=== PATIENT | female | born 1980 | race Caucasian/White ===

== ENCOUNTER → 2019-03-30 | Outpatient (CLI) | payer BC ==
[2019-03-30 12:50] LABS: Glucose 3 Hour, Gest 77 mg/dL
== END | disposition home or self-care (01) ==
LOC: LABWHC1 08:38
PROVIDERS: ATTEND Obstetrics & Gynecology
DX: O99.810 Abnormal glucose complicating pregnancy (principal); Z3A.00 Weeks of gestation of pregnancy not specified
CPT/HCPCS: 36415; 82951; 82952

== ENCOUNTER 2019-06-19 11:01 | Inpatient (IN) | payer BC ==
--- NOTE | 2019-06-28 05:52 | P.HPOB ---
History of Present Illness H&P Date: 06/28/19 Chief Complaint: Requesting induction of labor. This patient is a pleasant 38-year-old 7 para 4 female estimated date of confinement 06/28/2019 estimated gestational age 40-0/7 weeks who presents to labor and delivery requesting induction of labor. Patient's care is complicated by advanced maternal age. Patient has declined referral to maternal- medicine or any genetic testing. She has been watched with growth ultrasounds and nonstress testing. Patient had a previous section as her first followed by 3 successful VBACs wishes to again. has otherwise been uncomplicated. Review of Systems Genitourinary: Reports Menstruation: Reports amenorrhea Past Medical History Past Medical History: No Reported History Additional Past Medical History / Comment(s): Past obstetrical history shows a C/S with her first baby, followed by 3 successful VBACs. Pt also had a 14 wks demise. History of Any Multi-Drug Resistant Organisms: None Reported Past Surgical History: Section, Orthopedic Surgery Additional Past Surgical History / Comment(s): Left ACL repair. D&C for retained placenta Past Anesthesia/Blood Transfusion Reactions: No Reported Reaction Past Psychological History: No Psychological Hx Reported Smoking Status: Never smoker Past Alcohol Use History: None Reported Past Drug Use History: None Reported - Past Family History Father Family Medical History: No Reported History Mother Family Medical History: No Reported History Medications and Allergies Home Medications Medication Instructions Recorded Confirmed Type Vit No.124/Iron/Folic 1 tab PO DAILY 03/28/15 06/07/16 History [ Vitamin Tablet] Acetaminophen-Codeine 300-30mg 1 - 2 each PO Q4HR PRN #40 tab 06/08/16 Rx [Tylenol w/codeine #3] Ibuprofen [Motrin] 600 mg PO Q6HR PRN #40 tab 06/08/16 Rx Amoxicillin/Potassium Clav 1 each PO Q12HR #20 tab 07/03/16 Rx [Augmentin 875-125 Tablet] Allergies Allergy/AdvReac Type Severity Reaction Status Date / Time No Known Allergies Allergy Verified 08/02/15 12:31 Exam - OBG Physical Exam Abdomen: bowel sounds normal, no diffuse tenderness, no bruit present, no guarding noted, no hepatomegaly, no splenomegaly, no mass Vulva: both: normal Vagina: normal moisture, no discharge Cervix: no lesion (Cervix the office was 3 cm dilated 50% effaced.), no discharge Uterus: enlarged (Fundal height 38 cm) Results blood work shows she is O positive, rubella immune, RPR nonreactive, hepatitis B negative, Glucola was abnormal with a normal three-hour gtt., group B strep was negative, growth ultrasounds were normal. Assessment and Plan (1) 40 weeks gestation of Status: Acute Code(s): Z3A.40 - 40 WEEKS GESTATION OF SNOMED Code(s): 55827730 (2) Elderly multigravida Status: Acute Code(s): O09.529 - SUPERVISION OF ELDERLY MULTIGRAVIDA, UNSPECIFIED TRIMESTER SNOMED Code(s): 962092885 (3) Desires (vaginal after ) trial Status: Acute Code(s): O34.21 - MATERNAL CARE FOR SCAR FROM PREVIOUS * DO NOT USE * SNOMED Code(s): 796980130
[2019-06-28] MEDS ORDERED: OXYTOCIN 10 UNIT/ML 1 ML VIAL IM PRN (06:12)
[2019-06-28] MEDS ORDERED: LIDOCAINE 0.5% (PF) 5 MG/ML (50 ML SDV) SQ PRN (06:12)
[2019-06-28] MEDS ORDERED: CARBOPROST TROMETHAMINE 250 MCG/ML 1 ML AMP IM PRN (06:12)
[2019-06-28] MEDS ORDERED: METHYLERGONOVINE 0.2 MG/ML 1 ML AMP IM PRN (06:12)
[2019-06-28] MEDS ORDERED: TERBUTALINE 1 MG/ML VIAL SQ PRN (06:12)
[2019-06-28] MEDS ORDERED: OXYTOCIN 30 UNITS/500 ML NS 30 UNIT in SALINE 1 500ML.BAG IV SCH (06:12)
[2019-06-28] MEDS ORDERED: LACTATED RINGERS 1,000 ML IV SCH (06:12)
[2019-06-28 06:37] LABS: Basophils % (A) 0 %; Eosinophils # (A) 0.1 k/uL (0-0.7); Eosinophils % (A) 1 %; HCT 40.5 % (34.0-46.0); HGB 13.4 gm/dL (11.4-16.0); Lymphocytes # (A) 2.1 k/uL (1.0-4.8); Lymphocytes % (A) 17 %; MCHC 33.1 g/dL (31.0-37.0); MCV 90.7 fL (80.0-100.0); Mean Platelet Volume 7.9; Monocytes # (A) 0.5 k/uL (0-1.0); Monocytes % (A) 4 %; Neutrophils # (A) 9.1 k/uL (1.3-7.7); Neutrophils % (A) 76 %; Platelet Count 176 k/uL (150-450); RBC 4.47 m/uL (3.80-5.40); RDW 13.9 % (11.5-15.5); WBC 11.9 k/uL (3.8-10.6)
[2019-06-28 06:56] VITALS: BMI 41.1
[2019-06-28] MEDS ORDERED: PRENATAL VIT-IRON-FOLIC ACID 1 EACH CAP PO SCH (09:00)
[2019-06-28] MEDS ORDERED: WITCH HAZEL 1 EACH MED..PAD TOPICAL PRN (10:59)
[2019-06-28] MEDS ORDERED: OXYTOCIN 20 UNITS/1000 ML NS 1,000 ML IV SCH (10:59)
[2019-06-28] MEDS ORDERED: SIMETHICONE 80 MG CHEWABLE PO PRN (10:59)
[2019-06-28] MEDS ORDERED: ZOLPIDEM 5 MG TAB PO PRN (10:59)
[2019-06-28] MEDS ORDERED: BISACODYL 10 MG SUPP RECTAL PRN (10:59)
[2019-06-28] MEDS ORDERED: BENZOCAINE/MENTHOL SPRAY 1 GM/SPRAY AEROSOL TOPICAL PRN (10:59)
[2019-06-28] MEDS ORDERED: LANOLIN CREAM 5 GM TUBE TOPICAL PRN (10:59)
[2019-06-28] MEDS ORDERED: HYDROCORTISONE 2.5% RECTAL CREAM 30 GM TUBE RECTAL PRN (10:59)
[2019-06-28] MEDS ORDERED: diphenhydrAMINE 25 MG CAP PO PRN (10:59)
[2019-06-28] MEDS ORDERED: ACETAMINOPHEN TAB 325 MG TAB PO PRN (10:59)
[2019-06-28] MEDS ORDERED: diphenhydrAMINE 50 MG/ML 1 ML VIAL IVP PRN (10:59)
[2019-06-28] MEDS: IBUPROFEN 600 MG TAB PO PRN ×2 (11:31→22:15)
[2019-06-28] MEDS: SENNOSIDES-DOCUSATE SODIUM 1 EACH TAB PO SCH ×2 (11:36→21:01)
--- NOTE | 2019-06-28 12:35 | P.PROBDLV ---
Vaginal Delivery Note - . Vaginal Delivery Note: Normal vaginal delivery () viable female infant Apgars 9 and 9 delivery time is 1035 hrs. Please see dictated H&P for intimate details of this patient's admission and brief summary this is a pleasant 38-year-old 7 para 4 female 40-0/7 weeks gestation who is admitted to labor and delivery for requested induction of labor. Patient is 3-4 cm dilated has artificial rupture membranes for clear fluid. Patient labor is induced with Pitocin per protocol. Patient does not request anything for pain control. She quickly progresses and gets to complete. Patient pushes the head to the perineum. Posterior perineum was supported we have controlled delivery of 's head over the intact perineum. Mouth and nares are bulb suctioned. There is a nuchal cord 1 which is reduced. With gentle downward traction we then have delivery anterior posterior shoulder and rest this 's body. This is a vigorous viable female infant Apgars are 9 and 9 delivery time is 1035 hrs. After delivery of the the infant is late on the mother's abdomen the cord was allowed to stop pulsating. Cord is then doubly clamped and cut. The placenta spontaneously delivered intact. Inspection of perineum shows a first-degree laceration was repaired with 3-0 Vicryl usual fashion. Excellent reapproximation is noted. All counts are correct 3. There are no complications. Infant and mother stable in delivery room.
--- NOTE | 2019-06-29 06:13 | P.PNOBGVD ---
Subjective - Subjective Patient reports: Reports appetite normal, Reports voiding normally, Reports pain well controlled, Reports ambulating normally : doing well Objective - Latest Vital Signs Latest vital signs: Vital Signs Temp Pulse Pulse Resp BP Pulse Ox 06/29/19 00:00 98 F 79 15 121/74 06/28/19 20:00 98 F 70 15 110/65 06/28/19 16:15 97.5 F L 68 17 111/66 06/28/19 12:46 98.3 F 79 16 116/64 06/28/19 12:17 73 17 108/76 06/28/19 11:46 98.3 F 76 17 115/56 06/28/19 11:31 70 16 114/60 06/28/19 11:16 73 17 118/61 06/28/19 11:04 81 16 118/57 06/28/19 10:46 77 17 121/59 06/28/19 06:47 96.6 F L 95 18 125/71 96 Intake and Output 06/28/19 06/28/19 06/29/19 14:59 22:59 06:59 Other: # Voids 1 - Exam Lungs: bilateral: normal Chest: Normal S1, Normal S2 Extremities: Present: normal Abdomen: Present: normal appearance, soft Uterus: Present: normal, firm - Labs Labs: Abnormal Lab Results - Last 24 Hours (Table) 06/28/19 Range/Units 06:24 WBC 11.9 H (3.8-10.6) k/uL Neutrophils # 9.1 H (1.3-7.7) k/uL Assessment and Plan Assessment: day #1. Patient is resting without complaints and wishes to go home. Vital signs are stable and she is afebrile. Uterus is firm nontender and she is having normal lochia. My impression is a normal course. Plan is to continue routine care and discharge home later today. (1) 40 weeks gestation of Current Visit: No Status: Acute Code(s): Z3A.40 - 40 WEEKS GESTATION OF SNOMED Code(s): 64039236 (2) Elderly multigravida Current Visit: No Status: Acute Code(s): O09.529 - SUPERVISION OF ELDERLY MULTIGRAVIDA, UNSPECIFIED TRIMESTER SNOMED Code(s): 394903737 (3) Desires (vaginal after ) trial Current Visit: No Status: Acute Code(s): O34.21 - MATERNAL CARE FOR SCAR FROM PREVIOUS * DO NOT USE * SNOMED Code(s): 844343920
--- NOTE | 2019-06-29 06:16 | P.DS ---
Providers Date of admission: 06/28/19 05:55 Expected date of discharge: 06/29/19 Attending physician: Reuben Knight Primary care physician: Stated None - Discharge Diagnosis(es) (1) 40 weeks gestation of Current Visit: No Status: Acute (2) Elderly multigravida Current Visit: No Status: Acute (3) Desires (vaginal after ) trial Current Visit: No Status: Acute Hospital Course: Please see dictated H&P for intimate details of this patient's admission. Brief summary this is a pleasant 38-year-old 7 para 4 female 40-0/7 weeks gestation who is admitted to labor and delivery for requested induction of labor. Patient quickly goes on to have a vaginal delivery () of a viable female infant. Please see dictated delivery note. day #1 patient without complaints wishes to go home. Procedures: Induction of labor and normal vaginal delivery Patient Condition at Discharge: Good Plan - Discharge Summary New Discharge Prescriptions: New Ibuprofen [Motrin] 600 mg PO Q6HR PRN #40 tab PRN Reason: Mild Pain Or Fever >= 100.5 No Action Vit No.124/Iron/Folic [ Vitamin Tablet] 1 tab PO DAILY Discharge Medication List Vit No.124/Iron/Folic [ Vitamin Tablet] 1 tab PO DAILY 03/28/15 [History] Ibuprofen [Motrin] 600 mg PO Q6HR PRN #40 tab 06/29/19 [Rx] Follow up Appointment(s)/Referral(s): Reuben Knight MD [STAFF PHYSICIAN] - 08/10/19 9:45 am Patient Instructions/Handouts: Vaginal Delivery (DC) Activity/Diet/Wound Care/Special Instructions: No intercourse or anything per vagina for 6 weeks. Please call if any fever, chills, excessive vaginal bleeding, and/or abdominal pain. Discharge Disposition: HOME SELF-CARE
[2019-06-29] MEDS: IBUPROFEN 600 MG TAB PO PRN (08:14)
[2019-06-29] MEDS: SENNOSIDES-DOCUSATE SODIUM 1 EACH TAB PO SCH (08:15)
[2019-06-29 09:48] VITALS: BP 90/47; PULSE 73; RESP 16; TEMP 97.9
== END 2019-06-29 11:05 | disposition home or self-care (01) | DRG 807 ==
LOC: 4FBP 06-28 05:55
PROVIDERS: ADMIT Obstetrics & Gynecology; ATTEND Obstetrics & Gynecology
PROC: 10E0XZZ Delivery of Products of Conception, External Approach (ICD-10-PCS; principal; 2019-06-28)
PROC: 0HQ9XZZ Repair Perineum Skin, External Approach (ICD-10-PCS; 2019-06-28)
PROC: 10907ZC Drainage of Amniotic Fluid, Therapeutic from Products of Conception, Via Natural or Artificial Opening (ICD-10-PCS; 2019-06-28)
PROC: 3E033VJ Introduction of Other Hormone into Peripheral Vein, Percutaneous Approach (ICD-10-PCS; 2019-06-28)
DX: O34.219 Maternal care for unspecified type scar from previous cesarean delivery (principal); Z37.0 Single live birth; O69.81X0 Labor and delivery complicated by cord around neck, without compression, not applicable or unspecified; O70.0 First degree perineal laceration during delivery; Z3A.40 40 weeks gestation of pregnancy
CPT/HCPCS: 85025; 86850; 86900; 86901

== ENCOUNTER 2019-08-23 06:41 | Day surgery (SDC) | payer BC ==
[2019-08-18 14:26] VITALS: BMI 36.8
--- NOTE | 2019-08-20 07:32 | P.HPOB ---
History of Present Illness H&P Date: 08/20/19 Chief Complaint: Family planning. This patient is a pleasant 38-year-old multigravida patient status post vaginal delivery of her fifth viable infant who presents for laparoscopic fallopian tube cauterization for permanent sterilization. Padmini and I've discussed methods for control including hormonal methods, male sterilization, IUD in this is the method she has chosen. Patient's has declined getting a vasectomy. Past Medical History Past Medical History: No Reported History Additional Past Medical History / Comment(s): sports induced asthma in high school History of Any Multi-Drug Resistant Organisms: None Reported Past Surgical History: Section, Orthopedic Surgery Additional Past Surgical History / Comment(s): Left ACL repair. D&C for retained placenta Past Anesthesia/Blood Transfusion Reactions: No Reported Reaction Past Psychological History: No Psychological Hx Reported Smoking Status: Never smoker Past Alcohol Use History: None Reported Past Drug Use History: None Reported - Past Family History Father Family Medical History: No Reported History Mother Family Medical History: No Reported History Medications and Allergies Home Medications Medication Instructions Recorded Confirmed Type Vit No.124/Iron/Folic 1 tab PO DAILY 03/28/15 08/18/19 History [ Vitamin Tablet] Allergies Allergy/AdvReac Type Severity Reaction Status Date / Time No Known Allergies Allergy Verified 08/18/19 14:18 Exam - OBG Physical Exam Abdomen: bowel sounds normal, no diffuse tenderness, no bruit present, no guarding noted, no hepatomegaly, no splenomegaly, no mass Vulva: both: normal Vagina: normal moisture, no discharge Cervix: no lesion, no discharge Uterus: normal size, normal contour Assessment and Plan Assessment: This patient is a pleasant 38-year-old multiparous patient status post vaginal delivery or fifth viable infant who is now requesting permanent sterilization by laparoscopic tubal cauterization. Plan is laparoscopy with bilateral fallopian tube cauterization. Patient I discussed in detail the risks of the surgery including risks of infection, bleeding, possible injury bowel, bladder, vessels, and/or other organs. She understands that this is considered permanent although there is a failure rate of approximately 5 or less per thousand procedures done. She also understands if she does become she is a 50% chance of a tubal or an ectopic . Patient and I have discussed the fact that this is an elective procedure and alternatives exist. All the patient's questions are answered and a written consent is obtained. (1) Family planning Status: Acute Code(s): Z30.09 - ENCOUNTER FOR OTH GENERAL CNSL AND ADVICE ON CONTRACEPTION SNOMED Code(s): 416902512
[~2019-08-23 06:41] MED LIST: DEXAMETHASONE SOD PHOSPHATE 10 MG/ML 1 ML VIAL IV ONE; LACTATED RINGERS 1,000 ML IV SCH; LIDOCAINE 1% 20 ML VIAL (10MG/ML) FOR IV START INTRADERMA PRN; MIDAZOLAM 2 MG/2 ML VIAL IV PRN; Pre Op ABX Message 1 EACH MISC MISCELLANE ONE; fentaNYL (PF) 50 MCG/ML 2 ML AMP IV PRN
[2019-08-23] MEDS ORDERED: ONDANSETRON 4 MG/2 ML VIAL IVP ONE (07:10)
[2019-08-23] MEDS ORDERED: ROCURONIUM BROMIDE 10 MG/ML 10 ML VIAL IV ONE (07:20)
[2019-08-23] MEDS ORDERED: GLYCOPYRROLATE 0.2 MG/ML 2 ML VIAL ONE (07:20)
[2019-08-23] MEDS ORDERED: SUCCINYLCHOLINE CHLORIDE 100 MG/5 ML SYR IV ONE (07:20)
[2019-08-23] MEDS ORDERED: NEOSTIGMINE 1 MG/ML 10 ML VIAL ONE (07:20)
[2019-08-23] MEDS ORDERED: fentaNYL (PF) 50 MCG/ML 2 ML AMP ONE (07:20)
[2019-08-23] MEDS ORDERED: HYDROmorphone (PF) 1 MG/ML ONE (07:20)
[2019-08-23] MEDS ORDERED: LIDOCAINE 1% INJ 10MG/ML (20 ML MDV) ONE (07:20)
[2019-08-23] MEDS ORDERED: MIDAZOLAM 2 MG/2 ML VIAL ONE (07:20)
[2019-08-23] MEDS ORDERED: PROPOFOL 10 MG/ML 20 ML VIAL IV ONE (07:20)
[2019-08-23] MEDS ORDERED: KETOROLAC 30 MG/ML 1 ML VIAL ONE (07:20)
[2019-08-23] MEDS ORDERED: BUPIVACAINE (PF) 0.5% 30 ML VIAL SQ ONE ×2 (07:38)
[2019-08-23 08:17] VITALS: TEMP 97
--- NOTE | 2019-08-23 08:21 | P.OP ---
Date of Procedure: 08/23/19 Preoperative Diagnosis: Multi parity desires permanent sterilization Postoperative Diagnosis: Same, pelvic adhesions Procedure(s) Performed: Laparoscopy with bilateral fallopian tube cauterization Anesthesia: SANDRINE Surgeon: Reuben Knight Estimated Blood Loss (ml): 5 Pathology: none sent Condition: stable Disposition: PACU Indications for Procedure: Please see dictated H&P for intimate details of this patient's admission. Brief summary this pleasant 38-year-old multiparous patient who is requesting permanent sterilization for family planning/ control. Patient I have discussed various methods of control and this is the method she has chosen. Patient understands this surgery is considered permanent however there is a failure rate of approximately 5 or less per thousand procedures done. Understands if she does become she is 50% chance of a tubal or an ectopic . Patient understands this surgery itself and apparently has risks including risks of infection, bleeding, possible injury bowel, bladder, vessels, and/or other organs. She understands alternatives to the surgery exist. All the patient's questions have been answered and a written consent is obtained. Operative Findings: This patient had normal-appearing tubes and ovaries. She had multiple omental adhesions to the lower incision Description of Procedure: This patient is taken to the operating room where she is laid in the supine position. She subsequently undergoes general endotracheal anesthesia without incident. With an adequate level of anesthesia she's placed in dorsal lithotomy position. Patient is a vaginal perineal abdominal prep and drape. First good on below placed a speculum in the vagina and visualize the cervix. The anterior lip of the cervix was grabbed with an Allis clamp. A acorn cannula is then gently placed into the endocervical canal and attached to the Allis clamp. Speculum was then removed. A red Hanson catheter is then placed in the bladder and 20 mL of urine is changed drained and left in place. With this done we changed gloves and go up above. A 1 cm infraumbilical incision is then made. Through this a 10 mm bladed lists optical trochars placed. Peritoneal placement is confirmed and pneumoperitoneum was created to 12 mm of carbon dioxide gas. With this done is obvious there is multiple omental adhesions to the previous incision. I make a 5 mm incision in the previous Pfannenstiel incision in an area that is clear of the omental adhesions. Through this a 5 mm trochars placed. This is an atraumatic blunt trocar. This done using a blunt probe I am able to move the omental adhesions aside unable to see the uterus and bilateral fallopian tubes and ovaries. They appear normal without evidence of adhesions. Using bipolar cautery I then gently pushed the omental adhesions aside then grasped the right fallopian tube approximately 3 cm from the cornual insertion. A 2-3 cm segment of tube was completely cauterized as demarcated on the volt meter. Complete cauterization is done in multiple portions and the segment. This done I turned my attention to the left fallopian tube and using a similar technique a 2-3 cm segment of tube was completely cauterized. Final inspection is done there is no evidence of any bleeding appears to be hemostatic. I did look at the upper abdomen and the of her appears normally cannot really see much else due to the omental adhesions. This point the procedure is ended. The lower trochars removed and good hemostasis is noted. Pneumoperitoneum was reduced and the upper trochars removed. Both incisions are closed using a 4-0 Vicryl interrupted fashion. Steri-Strips and sterile dressing is then applied and I injected was some Marcaine for postoperative pain control. I then good on below remove the acorn cannula an Allis clamp and catheter. Patient then awakened from anesthesia and taken to the recovery room in satisfactory condition. All counts are correct 3. There are no complications.
[2019-08-23] MEDS ORDERED: LACTATED RINGERS 1,000 ML IV ONE (08:32)
[2019-08-23 10:01] VITALS: BP 112/60; PULSE 62; RESP 15
== END 2019-08-23 11:15 | disposition home or self-care (01) ==
LOC: OR 06:41
PROVIDERS: ATTEND Obstetrics & Gynecology
DX: Z30.2 Encounter for sterilization (principal)
CPT/HCPCS: 81025; 58670; J2250; J1100; J2710; J2405; J2001; J3010; J1885; J1170; J0330; J2704

== ENCOUNTER → 2022-03-26 | Outpatient (CLI) | payer BC ==
--- NOTE | 2022-03-26 12:19 | XR ---
EXAMINATION TYPE: XR chest 2V DATE OF EXAM: 03/26/2022 COMPARISON: NONE HISTORY: Presurgical study. TECHNIQUE: Frontal and lateral views of the chest are obtained. FINDINGS: There is no suspicious focal air space opacity, pleural effusion, or pneumothorax seen. T he cardiac silhouette size is within normal limits. The osseous structures are intact. IMPRESSION: No acute process.
[2022-03-26 12:47] LABS: INR 0.9 (<1.2); Partial Thromboplastin Time 25.2 sec (22.0-30.0); Prothrombin Time 10.1 sec (9.0-12.0)
[2022-03-26 18:59] LABS: Appearance,Urine Clear (Clear); Bilirubin,Urine Negative (Negative); Blood,Urine Negative (Negative); Color,Urine Yellow (Yellow); Ketones,Urine Negative (Negative); Nitrite,Urine Negative (Negative); Specific Gravity,Urine 1.004 (1.001-1.030); Urobilinogen,Urine 0.2 (0.2,1.0)
[2022-03-26 19:49] LABS: African American GFR (CKD) 124.7 (60.0-200.0); Anion Gap 10.5 mmol/L (10.00-18.00); BUN/Creat Ratio 19.43 Ratio (12.00-20.00); Blood Urea Nitrogen 13.6 mg/dL (9.0-27.0); Calcium 9.9 mg/dL (8.7-10.3); Carbon Dioxide 23.5 mmol/L (20.0-27.5); Non-African American GFR(CKD) 107.6 (60.0-200.0); Potassium 4.4 mmol/L (3.5-5.5)
[2022-03-26 20:57] LABS: Basophils # (A) 0.04 X 10*3/uL (0.00-0.10); Basophils % (A) 0.6 %; Eosinophils # (A) 0.07 X 10*3/uL (0.04-0.35); HCT 40.9 % (37.2-46.3); HGB 13.3 g/dL (12.0-15.0); Immature Grans, Automated 0.3 %; Lymphocytes # (A) 1.61 X 10*3/uL (0.90-5.00); Lymphocytes % (A) 23.7 %; MCH 30.8 pg (27.0-32.0); MCHC 32.5 g/dL (32.0-37.0); MCV 94.7 fL (80.0-97.0); Monocytes # (A) 0.44 X 10*3/uL (0.20-1.00); Monocytes % (A) 6.5 %; NRBC Per 100 WBC 0 /100 WBCS (0.0-0.0); Neutrophils # (A) 4.62 X 10*3/uL (1.80-7.70); Neutrophils % (A) 67.9 %; Platelet Count 275 X 10*3/uL (140-440); RBC 4.32 X 10*6/uL (4.10-5.20); RDW 12.1 % (11.5-14.5)
== END | disposition home or self-care (01) ==
LOC: LABPAT 11:02
PROVIDERS: ATTEND Orthopaedic Surgery Orthopaedic Surgery of the Spine
DX: Z01.818 Encounter for other preprocedural examination (principal)
CPT/HCPCS: 36415; 71046; 80048; 81003; 85025; 85610; 85730; 87070

== ENCOUNTER 2022-04-03 10:53 | Observation (INO) | payer BC ==
[2022-04-01 12:29] VITALS: BMI 34.0
[~2022-04-03 10:53] MED LIST changes: -DEXAMETHASONE SOD PHOSPHATE 10 MG/ML 1 ML VIAL IV ONE; +DEXAMETHASONE SOD PHOSPHATE 4 MG/ML 1 ML VIAL IV ONE; +HYDROmorphone 0.5 MG/0.5 ML SYRINGE IVP PRN; -LACTATED RINGERS 1,000 ML IV SCH; -LIDOCAINE 1% 20 ML VIAL (10MG/ML) FOR IV START INTRADERMA PRN; -MIDAZOLAM 2 MG/2 ML VIAL IV PRN; +ONDANSETRON 4 MG/2 ML VIAL IVP ONE; -Pre Op ABX Message 1 EACH MISC MISCELLANE ONE; +ceFAZolin 1,000 MG in SODIUM CHLORIDE 0.9% IRRIGATIO 1,000 ML IRRIGATION PRN; -fentaNYL (PF) 50 MCG/ML 2 ML AMP IV PRN
[2022-04-03] MEDS: LACTATED RINGERS 1,000 ML IV SCH (11:31)
[2022-04-03] MEDS ORDERED: HYDROmorphone (PF) 1 MG/ML ONE (11:37)
[2022-04-03] MEDS ORDERED: PROPOFOL 10 MG/ML 20 ML VIAL IV ONE (11:37)
[2022-04-03] MEDS ORDERED: NEOSTIGMINE 1 MG/ML 10 ML VIAL ONE (11:37)
[2022-04-03] MEDS ORDERED: fentaNYL (PF) 50 MCG/ML 2 ML AMP ONE (11:37)
[2022-04-03] MEDS ORDERED: SUCCINYLCHOLINE CHLORIDE 100 MG/5 ML SYR IV ONE (11:37)
[2022-04-03] MEDS ORDERED: MIDAZOLAM 2 MG/2 ML VIAL ONE (11:37)
[2022-04-03] MEDS ORDERED: LIDOCAINE 2% INJ 20 MG/ML (2 ML VIAL) ONE (11:37)
[2022-04-03] MEDS ORDERED: GLYCOPYRROLATE 0.2 MG/ML 2 ML VIAL ONE (11:37)
[2022-04-03] MEDS ORDERED: ROCURONIUM 10 MG/ML (5 ML VIAL) IV ONE (11:37)
[2022-04-03] MEDS ORDERED: BUPIVACAIN-EPI 0.25%-1:200,000 30 ML VIAL SQ ONE (12:10)
[2022-04-03] MEDS ORDERED: GELATIN SPONGE,ABSORB (LARGE) 1 EACH SPONGE TOPICAL ONE (12:10)
[2022-04-03] MEDS ORDERED: THROMBIN (BOVINE) 5,000 UNIT VIAL TOPICAL ONE (12:10)
[2022-04-03] MEDS ORDERED: LACTATED RINGERS 1,000 ML IV ONE (13:59)
[2022-04-03] MEDS ORDERED: ONDANSETRON 4 MG/2 ML VIAL IVP PRN (14:13)
[2022-04-03] MEDS ORDERED: BENZOCAINE/MENTHOL LOZENG 1 EACH LOZENGE MUCOUS MEM PRN (14:13)
[2022-04-03] MEDS ORDERED: SENNOSIDES-DOCUSATE SODIUM 1 EACH TAB PO PRN (14:13)
[2022-04-03] MEDS ORDERED: HYDROmorphone 0.5 MG/0.5 ML SYRINGE IVP PRN (14:13)
[2022-04-03] MEDS ORDERED: SUMAtriptan succinate 50 MG TAB PO PRN (14:17)
--- NOTE | 2022-04-03 14:22 | P.OP ---
Date of Procedure: 04/03/22 Preoperative Diagnosis: Spondylolisthesis L5-S1, spondylolysis L5-S1, degenerative disc disease, lower extremity radiculopathy, herniated disc L5-S1, Postoperative Diagnosis: Same Anesthesia: GETA Pathology: none sent Condition: stable Disposition: PACU Description of Procedure: DESCRIPTION OF PROCEDURE(S): BRIEF OPERATIVE NOTE Preoperative Diagnosis: Spondylolisthesis , spinal stenosis , lower extremity radiculopathy, lower extremity weakness, neurogenic claudication, low back pain, degenerative disc disease Postoperative Diagnosis: Same Procedure: Laminectomy and decompression Computer CT navigation aided Minimally invasive Posterior lateral decompression and pars and facet fusion L5-S1 Minimally invasive Transforaminal lumbar interbody fusion for a 360 fusion L5-S1 Discectomy for decompression L5-S1 Placement of interbody graft L5-S1 Use of computer navigation for fusion and placement of pedicle screws Local autogenous bone grafting Aspiration of bone marrow from the vertebral body pedicle Use of bone graft extenders Surgeon: Dr. Villalta Coal Crusher Operator: Sanjay OVERTON who is present throughout the entire the case persistence during positioning, dissection, exposure, visualization, and all crucial elements of the case as well as closure. Anesthesia: General anesthesia per Estimated blood loss: Approximately 1 Dr. Craig 00 mL Complications: None apparent Components implanted: K2M minimally invasive [place] pedicle screw system withscrews measuring 6.5 mm in diameter to rods one [place] interbody cage with 10 mL of osteo amp bio4 bone graft substitute and 30 mL of the BX bone fibers to supplement the local autogenous bone graft and bone marrow aspirate Disposition: To recovery room in good stable condition. OPERATIVE INDICATIONS The patient has had severe issues at their lower extremity in her lower back over the past several years with significant worsening over the past several months. Over the past few months the patient had pain at their back and their lower extremities. The patient is having severe radicular symptoms at their lower extremity with weakness. The patient is having significant pain in their back. They are unable to obtain any comfort. We did aggressive conservative treatment with medications therapy and interventional pain management however thery were not having any relief. The patient also showed evidence of a listhesis with some dynamic instability At L5-S1 which correlated well with her low back and lower extremity symptoms. The patient has been through conservative treatment. We discussed various treatment options including surgery, and the patient wishes to proceed with surgery We discussed the risk, patient's alternatives and benefits of surgery including but not limited to, risk of bleeding risk of infection, risk of need for further surgery, risk of decreased, loss of motion, muscle function, malunion nonunion, hardware failure, nerve damage, paralysis, heart attack, blindness and . They understood issues with the current pandemic and the possibility of exposure. OPERATIVE SUMMARY After discussing all the risks, patient alternatives and benefits at length, the patient elected to proceed with surgical intervention, signed informed consent, and presented for their procedure. The patient was seen and examined in the preoperative holding area and the surgical site was marked. The patient was given antibiotics and brought to the operating room. The patient was sedated and intubated by anesthesia in standard fashion. The patient was positioned on to the operating room table in a prone position on the appropriate frame which was well-padded and well molded. We were careful to pad any bony prominences and pressure points. We were careful to maintain the patient's cervical spine and good neutral alignment and position throughout. The patient was prepped and draped in a normal standard fashion. An appropriate timeout and keystone protocol performed. We were able to proceed with the surge ry. The local wound area was infiltrated with local anesthetic. Over the right iliac crest I was able to make small stab incisions and establish a guidepin screw fixation to the iliac crest 2. I was able place the computer referencing device over the guidepins to establish an appropriate reference point for the Ziem CT navigation. We then were able to place patient in an appropriate drape and do a navigation spin for visualization and 3-D reconstruction of the lumbar spine. I was able utilize C-arm guidance and navigation to establish appropriate position over the pedicles bilaterally at the appropriate levels . With the appropriate levels confirmed was able to make small incisions over the appropriate pedicle sites bilaterally. Utilizing the computer navigation device I was able to establish bony landmarks at the right iliac crest for a bony reference point for the navigation device. I was able to establish a Jamshidi needle over the lateral aspect of the pedicle and advanced the trocar into the pedicle being careful not to breech superiorly inferiorly medially or laterally using computer navigation device. Position was confirmed regularly with AP and lateral images on C-arm and with the computer navigation device at the appropriate levels bilaterally. I was able to establish the trocar into the pedicle appropriately into the posterior aspect of the vertebral body bilaterally at the appropriate levels At L5 and S1 bilaterally. This was done at each of the pedicle positions and each of the vertebrae. At the superior vertebraeof L5 on the right I was able to take approximately 15 mL of bone aspiration for use later in the case to supplement the allograft and autograft bone. I was able place the guidewire into the trocar and into the vertebral body appropriately under C-arm guidance. Dissection was taken down over the wire to the appropriate starting position for the screw placed. The appropriate length screw was chosen, threaded over the guidewire and screwed appropriately into the pedicle and vertebral body under C-arm guidance in excellent alignment and position with good bony purchase. This is done at each of the screw sites at the appropriate levels at L5 and S1 bilaterally. With the screws intact I extended the incision to connect the screw hole sites on the most symptomatic side On the left side. I dissected down to establish access over the pars and lamina to the base of the spinous process. I was able to expose the facet joint. The capsule the facet was taken down and showed some facet arthrosis at the joint. I was able to use a combination of curettes and Kerrison rongeurs and a high-speed drill to take down the facet joint and do a facetectomy. I was able get excellent foraminal decompression and central decompression with undermining across midline to perform a laminectomy centrally and contralaterally. As able get good central decompression. The ligamentum flavum was taken down to further decompress centrally and at bilateral neural foramen. I was able to expose the disc space and visualize the traversing nerve root. Note was made of some disc protrusion and disc herniation that was abutting the traversing nerve root at the level causing further compression of the nerve root. I was able to establish a annulotomy at the appropriate level protecting soft tissue and neural structures. Note was made of some disc desiccation at the disc. I performed a complete discectomy with accommodation of curettes and rasps and scrapers. I was able get good endplate preparation at the disc space. I sized for the appropriate size interbody spacer protecting the soft tissue and neural structures. The wound was copiously irrigated and suctioned dry. There is no evidence of any dural tear or leak. I was able to pack the disc space with local autogenous bone graft as well as a small amount of bone graft which was also placed into the interbody cage itself. Protecting the soft tissue structures and neural structures I was able place the interbody cage in good alignment and good position with good fit and fill at the interbody space. Position was confirmed with C-arm guidance. Good hemostasis maintained. There is no evidence of any dural tear or leak. The wound was irrigated and suctioned dry. With the hardware intact, intraoperative C-arm imaging was again taken which showed good alignment and position of the hardware at the appropriate levels. We were then able to measure, contour and place the rods and appropriate hardware bilaterally. I was able to place capcrews, tighten them down, and torque them with the torque screwdriver appropriately. With this intact I was able to place the local autogenous bone graft with additional bone graft enhancer as necessary into the posterior lateral gutters over the decorticated transverse processes and the pars defect on the right and facet joints on the contralateral side. The remainder of the bone graft was placed over the facet joint on the contralateral side after taking down the facet joint capsule. With the bone graft intact, a stable construct, and good decompression at the appropriate levels, we were able to proceed with closure. Good hemostasis was maintained. There is no evidence of dural tear or leak. The fascia was closed for a watertight closure. he subcuticular tissue was closed with absorbable suture. The wound was cleaned and dried and dressed with the appropriate dressing. The drapes were broken down. The patient was gently rolled back onto their hospital bed being careful to maintain their cervical spine and good neutral alignment and position. They were woken up by anesthesia, extubated, and brought to the recovery room in good stable condition. The patient will be admitted to the hospital for appropriate postoperative care, medical management and monitoring. We will continue to follow them closely about the postoperative course.
--- NOTE | 2022-04-03 14:31 | FL ---
Fluoroscopy INDICATION: Pain FINDINGS: Fluoroscopy time: 19 seconds. Images obtained: 4. IMPRESSIONS: 1. Documentation of fluoroscopy.
[2022-04-03] MEDS: SODIUM CHLORIDE 0.9% 1,000 ML IV SCH (16:15)
[2022-04-03] MEDS: HYDROcodone/APAP 5-325MG 1 EACH TAB PO PRN ×2 (16:26→20:31)
[2022-04-03] MEDS: CYCLOBENZAPRINE 10 MG TAB PO PRN (16:26)
--- NOTE | 2022-04-03 20:06 | CONS ---
CONSULTATION REASON FOR CONSULTATION: Advice regarding asthma and other medical issues, requested by Dr. Villalta. HISTORY OF PRESENT ILLNESS: This 41-year-old woman with a past medical history of multiple medical problems, including asthma and migraine, underwent decompression and fusion of L5-S1. The patient tolerated the procedure well. There is no history of any fever, rigors or chills. No history of headache, loss of consciousness, seizures. PAST MEDICAL HISTORY: Asthma, migraine, DJD. MEDICATIONS: Medications prior to admission: Imitrex and Inderal. ALLERGIES: NONE. FAMILY HISTORY: No history of heart disease or strokes in the family. SOCIAL HISTORY: No history of smoking. REVIEW OF SYSTEMS: Fourteen-point review of systems negative except as mentioned earlier. PHYSICAL EXAMINATION: Pulse is 62, blood pressure 106/59, respirations 16. CHEST: Clear to auscultation. CARDIOVASCULAR: S1, S2 normal. NECK: No jugular venous distention. ABDOMEN: Soft, nontender. NERVOUS SYSTEM: No focal deficits. EXAMINATION OF THE BACK: Status post surgery. SKIN: No ulcer or rash. LABS: Not available. ASSESSMENT: 1. Status post spinal surgery with decompression and fusion of L5-S1. 2. History of asthma. 3. History of migraine. 4. History of degenerative joint disease. RECOMMENDATIONS AND DISCUSSION: In this 41-year-old woman who presented after surgery, at this time I recommend continuing the current medications, symptomatic treatment. Resume the home medications. Incentive spirometry. DVT prophylaxis. Closely follow. Patient may be asked to follow up with her primary physician closely. Thank you, Dr. Villalta, for letting us participate in the care of this patient. See orders for further details. MMODL / IJN: [id number] /
[2022-04-03] MEDS: PROPRANOLOL 40 MG TABLET PO SCH (20:31)
[2022-04-03] MEDS: HYDROmorphone 1 MG/ML 1 ML SYRINGE IVP PRN (21:50)
[2022-04-03] MEDS ORDERED: diazePAM 5 MG TAB PO STA (22:00)
[2022-04-04] MEDS: HYDROmorphone 1 MG/ML 1 ML SYRINGE IVP PRN ×5 (02:07→22:59)
[2022-04-04] MEDS: SODIUM CHLORIDE 0.9% 1,000 ML IV SCH ×2 (02:55→17:19)
[2022-04-04] MEDS: CYCLOBENZAPRINE 10 MG TAB PO PRN ×3 (04:58→20:07)
[2022-04-04] MEDS: HYDROcodone/APAP 5-325MG 1 EACH TAB PO PRN ×3 (04:58→20:07)
[2022-04-04] MEDS: LACTATED RINGERS 1,000 ML IV SCH (07:11)
[2022-04-04] MEDS: PROPRANOLOL 40 MG TABLET PO SCH ×2 (07:18→20:08)
[2022-04-04] MEDS: SENNOSIDES-DOCUSATE SODIUM 1 EACH TAB PO SCH (07:18)
[2022-04-04 09:25] LABS: Basophils # (A) 0.02 X 10*3/uL (0.00-0.10); Basophils % (A) 0.2 %; Eosinophils # (A) 0 X 10*3/uL (0.04-0.35); Eosinophils % (A) 0 %; HCT 35.9 % (37.2-46.3); HGB 11.8 g/dL (12.0-15.0); Immature Grans, Automated 0.4 %; Lymphocytes # (A) 0.58 X 10*3/uL (0.90-5.00); Lymphocytes % (A) 7.1 %; MCH 31.3 pg (27.0-32.0); MCHC 32.9 g/dL (32.0-37.0); MCV 95.2 fL (80.0-97.0); Mean Platelet Volume 10.7 fL (9.5-12.2); Monocytes # (A) 0.69 X 10*3/uL (0.20-1.00); Monocytes % (A) 8.4 %; NRBC Per 100 WBC 0 /100 WBCS (0.0-0.0); Neutrophils % (A) 83.9 %; Platelet Count 169 X 10*3/uL (140-440); RBC 3.77 X 10*6/uL (4.10-5.20); RDW 12.5 % (11.5-14.5); WBC 8.22 X 10*3/uL (4.50-10.00)
[2022-04-04 09:52] LABS: African American GFR (CKD) 131.2 (60.0-200.0); Anion Gap 10.5 mmol/L (10.00-18.00); Blood Urea Nitrogen 5.4 mg/dL (9.0-27.0); Calcium 8.4 mg/dL (8.7-10.3); Carbon Dioxide 22.5 mmol/L (20.0-27.5); Non-African American GFR(CKD) 113.2 (60.0-200.0); Potassium 3.5 mmol/L (3.5-5.5)
--- NOTE | 2022-04-04 10:49 | P.PN ---
Progress Note - Text Progress Note Date: 04/04/22 Postoperative day #1 Patient is seen and examined today at bedside. The patient has some pain around the surgical site as expected. Pain is being controlled with medication. She is very happy with how her left leg is feeling. She says it hasn't felt this good in a long time. Her back is sore but she has been able to start to mobilize. Her Aayla has been discontinued and she is voiding freely. Physical Exam Afebrile with stable vital signs Abdomen is soft nontender. Chest has good excursion deep and space expiration The incision site is clean dry and intact. No erythema there is no purulence. Her back dressing is clear. Extremities have not had neurologic change from prior to surgery. She has good motion at her ankle. Toes. Calves and thighs were soft nontender without evidence of DVT. Assessment/Plan Postoperative day #1 status post minimally invasive decompression fusion L5-S1 for her spondylolisthesis with stenosis and left lower extremity radiculopathy Patient is progressing as expected from the surgery. She is very happy with her results thus far in terms of her leg. Her back is sore but she feels that her pain is getting under better control. She is hopeful to go home tomorrow. She has been able to void freely. We will continue to increase the patient's mobilization with therapy. We will continue pain control with oral or IV medications. We'll continue to follow patient closely.
[2022-04-05] MEDS: CYCLOBENZAPRINE 10 MG TAB PO PRN (04:18)
--- NOTE | 2022-04-05 05:29 | P.PN ---
Subjective Progress Note Date: 04/04/22 This is a very pleasant who is admitted under orthopedic services Dr. Villalta and is status post minimally invasive decompression and fusion of the L5-S1 and is being closely monitored. Patient reports to feeling much improved in the left lower extremity and continues with some post operative pain to the surgical site. Patient pedersen removed and is voiding. Patient reports to passing gas but no bowel movement as of yet. Pain management per primary service. Patient is tolerating diet and denies any nausea or vomiting. Patient is afebrile. Patient denies any chest pain or palpitations. Encouraged increased activity with PT as tolerated and continues IS use at least 10 times per hour while awake. Review of systems: Constitutional: No reports of fatigue, fever, or chills Cardiovascular: No reports of chest pain or palpitations Respiratory: No reports of shortness of breath or cough GI: reports of nausea, no reports of of vomiting, patient is passing gas : No reports of dysuria or retention Neurovascular: reports of generalized weakness, reports some lower back pain and spasms All medications have been reviewed Active Medications Hydrocodone Bitart/Acetaminophen (Hydrocodone/Apap 5-325mg 1 Each Tab) 1 each PO Q4HR PRN PRN Reason: Pain Stop: 05/03/22 14:14 Last Admin: 04/04/22 20:07 Dose: 1 each Documented by: Benzocaine/Menthol (Benzocaine/Menthol Lozeng 1 Each Lozenge) 1 each MUCOUS MEM Q4HR PRN PRN Reason: Sore Throat Stop: 05/03/22 14:14 Cyclobenzaprine HCl (Cyclobenzaprine 10 Mg Tab) 10 mg PO TID PRN PRN Reason: Muscle Spasm Stop: 05/03/22 14:14 Last Admin: 04/05/22 04:18 Dose: 10 mg Documented by: Hydromorphone HCl (Hydromorphone 0.5 Mg/0.5 Ml Syringe) 0.5 mg IVP Q5M PRN PRN Reason: Phase 1 or 2 - Pain Control Stop: 05/03/22 08:45 Hydromorphone HCl (Hydromorphone 0.5 Mg/0.5 Ml Syringe) 0.5 mg IVP Q4HR PRN PRN Reason: Pain Stop: 05/03/22 14:14 Last Admin: 04/05/22 04:18 Dose: 0.5 mg Documented by: Hydromorphone HCl (Hydromorphone 1 Mg/Ml 1 Ml Syringe) 1 mg IVP Q4HR PRN PRN Reason: Pain Stop: 05/03/22 14:14 Last Admin: 04/04/22 22:59 Dose: 1 mg Documented by: Lactated Ringer's (Lactated Ringers) 1,000 mls @ 20 mls/hr IV .Q24H [facility] Stop: 05/03/22 08:45 Last Admin: 04/04/22 07:11 Dose: Not Given Documented by: Sodium Chloride (Saline 0.9%) 1,000 mls @ 75 mls/hr IV .[id number] [facility] Stop: 05/03/22 14:16 Last Admin: 04/04/22 17:19 Dose: Not Given Documented by: Propranolol 40 Mg (Tablet) 1 each PO BID [facility] Last Admin: 04/04/22 20:08 Dose: 1 each Documented by: Ondansetron HCl (Ondansetron 4 Mg/2 Ml Vial) 4 mg IVP Q8HR PRN PRN Reason: Nausea And Vomiting Stop: 05/03/22 14:14 Senna/Docusate Sodium (Sennosides-Docusate Sodium 1 Each Tab) 1 each PO DAILY [facility] Stop: 05/04/22 09:01 Last Admin: 04/04/22 07:18 Dose: 1 each Documented by: Sumatriptan Succinate (Sumatriptan Succinate 50 Mg Tab) 50 mg PO DAILY PRN PRN Reason: Migraine Headache PHYSICAL EXAMINATION: GENERAL: The patient is alert and oriented x4, Well developed, well nourished. HEENT: Pupils are round and equally reacting to light. EOMI. no scleral icterus. No conjunctival pallor. Normocephalic, atraumatic. No pharyngeal erythema. No thyromegaly. CARDIOVASCULAR: S1 and S2 muffled PULMONARY: diminished breath sounds bilaterally with no wheezing or rhonchi noted. ABDOMEN: soft. Nontender on exam. obese. non-distended, normoactive bowel sounds. No palpable organomegaly. MUSCULOSKELETAL: No joint swelling or deformity. EXTREMITIES: No cyanosis, clubbing, or pedal edema. NEUROLOGICAL: Gross neurological examination did not reveal any focal deficits. Diffuse weakness SKIN: No rashes. Assessment: Status post spinal surgery with minimally invasive decompression and fusion of the L5-S1 History of asthma HIstory of Migraines History of degenerative joint disease GI prophylaxis DVT prophylaxis Full code Plan: Recommend to continue with current medications and management per orthopedic se rvices. Pedersen catheter removed and urinating. Patient reports to passing gas but no bowel movement as of yet. Tolerating diet and is currently sitting up in the chair at this time. Patient continues with some lower back discomfort and occasional spasms and recommend to continue to monitor for pain c ontrol..Encouraged increased activity as tolerated and work with PT/OT therapy. We will continue to follow during hospitalization. Thank you for this consultation. The impression and plan of care has been dictated by Laxmi Paula, nurse practitioner as directed. MD Dylan I have performed a history and examination and MDM of this patient, discussed the same with the dictator, and agree with the dictator's assessment and plan as written ,documented as a scribe. Based on total visit time, I have performed more than 50% of the visit. Any additional findings or plans will be noted. Objective - Vital Signs Vital signs: Vital Signs Temp 98.4 F 04/04/22 07:54 Pulse 78 04/04/22 07:54 Resp 16 04/04/22 07:54 BP 96/60 04/04/22 07:54 Pulse Ox 93 L 04/04/22 07:54 Intake & Output 04/03/22 04/04/22 04/04/22 18:59 06:59 18:59 Intake Total 2049 296 Output Total 570 1600 Balance 1480 -1600 296 Weight 85.5 kg Intake: IV 2049 Oral 296 Output: Urine 470 1600 Uretheral (Pedersen) 600 Estimated Blood Loss 100 Other: Voiding Method Indwelling Catheter - Labs CBC & Chem 7: 04/04/22 06:57 04/04/22 06:57
[2022-04-05] MEDS: LACTATED RINGERS 1,000 ML IV SCH (06:36)
[2022-04-05] MEDS: HYDROcodone/APAP 5-325MG 1 EACH TAB PO PRN (06:53)
[2022-04-05] MEDS: SODIUM CHLORIDE 0.9% 1,000 ML IV SCH (06:54)
[2022-04-05 07:03] VITALS: BP 104/68; PULSE 81; RESP 16; TEMP 98.1
[2022-04-05] MEDS: SENNOSIDES-DOCUSATE SODIUM 1 EACH TAB PO SCH (07:04)
[2022-04-05] MEDS: PROPRANOLOL 40 MG TABLET PO SCH (07:05)
--- NOTE | 2022-04-05 09:15 | P.DS ---
Providers Date of admission: 04/04/22 07:52 Expected date of discharge: 04/05/22 Attending physician: Deysi Villalta Consults: 04/03/22 14:13 Consult Physician Routine Consulting Provider: Rolo Lang Consult Reason/Comments: Medical management Do you want consulting provider notified?: Yes Primary care physician: Dago Walker - Discharge Diagnosis(es) (1) Spondylolysis of lumbar region Current Visit: Yes Status: Acute (2) Spondylolisthesis, lumbosacral region Current Visit: Yes Status: Acute (3) Lumbar back pain with radiculopathy affecting left lower extremity Current Visit: Yes Status: Acute (4) Lumbosacral disc herniation Current Visit: Yes Status: Acute (5) Status post lumbar spinal fusion Current Visit: Yes Status: Acute Hospital Course: This is a pleasant 51-year-old female who presented with L5-S1 spondylolisthesis, L5 spondylolysis, lumbar degenerative disc disease, L5-S1 herniated nucleus pulposus, and lower extremity radiculopathy who failed outpatient conservative therapy. She was admitted for an L5-S1 minimally invasive posterior lateral decompression and fusion with transforaminal lumbar interbody fusion. The patient tolerated the procedure well and did well postoperatively. She states her left lower extremity radiculopathy has significantly improved postoperatively. She has had some difficulty of pain control at her lumbar spine but feels her pain can be controlled with oral hydrocodone and cyclobenzaprine. She feels she is ready for discharge today. Condition on day of discharge stable. Patient will be discharged home. Patient was cleared preoperatively for surgery by Dr. Walker. Patient currently denies any nausea, vomiting, fever, or chills. Patient is eating and voiding freely without difficulty. She has not had a bowel movement postoperatively but she is able to pass gas. She has not experiencing any significant abdominal pain. She does states she has not eaten much food during her admission to the hospital but is able to eat without difficulty. Patient may shower Optifoam dressing intact. Patient may remove Optifoam dressing in 3 days and shower without a dressing at that time. Patient should refrain from driving until at least after their first follow-up appointment in the office. Patient should avoid excessive bending, lifting, and twisting; no lifting greater than 10 pounds. A walker has been delivered to the room for the patient. The patient may use his walker at home to aid in ambulation as needed. MAPS has been reviewed today, 04/05/2022 , with an Overall Overdose Risk Score of 190. An "Opiod Start Talking" Form has been signed and placed in the patient's chart. A prescription has been written for [place] 7.5 mg/325 mg 1 tablet every 6 hours as needed for pain, dispensed #28. Patient is also given prescriptions for cyclobenzaprine 10 mg one tab 3 times a day as needed for muscle spasm, dispensed #60 and Senokot-S 1 tab twice a day as needed for constipation, dispensed #60. Patient should avoid anti-inflammatory medications over the next 6 weeks postoperatively. Physical Exam on day of discharge: Patient is awake, alert, and oriented 3 Vital signs stable Good chest excursion with deep inspiration and expiration Abdomen soft nontender No signs or symptoms of DVT; no calf pain Extensor hallucis longus, plantarflexion, and dorsiflexion positive sustained bilateral lower extremities Incision is clean, dry, and intact; no erythema, purulence, or signs of infection Optifoam dressing intact Procedures: L5-S1 minimally invasive posterior lateral decompression and fusion with transforaminal lumbar interbody fusion Patient Condition at Discharge: Stable Plan - Discharge Summary Discharge Rx Participant: No New Discharge Prescriptions: New Cyclobenzaprine [Flexeril] 10 mg PO TID PRN #60 tab PRN Reason: Muscle Spasm HYDROcodone/APAP 7.5-325MG [[place] 7.5-325] 1 each PO Q6HR PRN #28 tab PRN Reason: Pain Sennosides-Docusate Sodium [Senokot-S] 1 tab PO BID PRN #60 tablet PRN Reason: Constipation No Action SUMAtriptan SUCCINATE [Imitrex] 50 mg PO DIRECTED PRN PRN Reason: Migraine Headache Propranolol [Inderal] 40 mg PO BID Discharge Medication List Propranolol [Inderal] 40 mg PO BID 04/01/22 [History] SUMAtriptan SUCCINATE [Imitrex] 50 mg PO DIRECTED PRN 04/01/22 [History] Cyclobenzaprine [Flexeril] 10 mg PO TID PRN #60 tab 04/05/22 [Rx] HYDROcodone/APAP 7.5-325MG [[place] 7.5-325] 1 each PO Q6HR PRN #28 tab 04/05/22 [Rx] Sennosides-Docusate Sodium [Senokot-S] 1 tab PO BID PRN #60 tablet 04/05/22 [Rx] Follow up Appointment(s)/Referral(s): Deysi Villalta DO [Doctor of Osteopathic Medicine] - 2 Weeks Activity/Diet/Wound Care/Special Instructions: Keep site clean. May shower with waterproof Optifoam intact. Do not soak in a tub. After 72 hours postoperatively, patient May remove dressing and then may shower with area uncovered. Leave glue intact and allow it to fray off on its own. May ambulate as tolerated. Avoid heavy or rigorous activity. No repetitive bending twisting or lifting. No overhead work Patient may use walker to aid in ambulation as needed.. Discharge Disposition: HOME SELF-CARE
--- NOTE | 2022-04-05 14:23 | P.PN ---
Subjective Progress Note Date: 04/05/22 This is a very pleasant who is admitted under orthopedic services Dr. Villalta and is status post minimally invasive decompression and fusion of the L5-S1 and is being closely monitored. Patient reports to feeling much improved in the left lower extremity and continues with some post operative pain to the surgical site. Patient pedersen removed and is voiding. Patient reports to passing gas but no bowel movement as of yet. Pain management per primary service. Patient is tolerating diet and denies any nausea or vomiting. Patient is afebrile. Patient denies any chest pain or palpitations. Encouraged increased activity with PT as tolerated and continues IS use at least 10 times per hour while awake. 04/05/2022 Patient is seen and evaluated in follow-up this morning and reports her pain being more controlled and less spasms. Patient has been up and walking and is passing gas with no reports of bowel movement as of yet. Patient is tolerating diet and denies any nausea or vomiting. Patient denies chest pain or shortness of breath and remains afebrile. Patient anticipates being discharged today. Review of systems: Constitutional: No reports of fatigue, fever, or chills Cardiovascular: No reports of chest pain or palpitations Respiratory: No reports of shortness of breath or cough GI: reports of nausea, no reports of of vomiting, patient is passing gas : No reports of dysuria or retention Neurovascular: reports of generalized weakness, reports some continued lower back pain, although somewhat improved today All medications have been reviewed PHYSICAL EXAMINATION: GENERAL: The patient is alert and oriented x4, Well developed, well nourished. HEENT: Pupils are round and equally reacting to light. EOMI. no scleral icterus. No conjunctival pallor. Normocephalic, atraumatic. No pharyngeal erythema. No thyromegaly. CARDIOVASCULAR: S1 and S2 muffled PULMONARY: diminished breath sounds bilaterally with no wheezing or rhonchi noted. ABDOMEN: soft. Nontender on exam. obese. non-distended, normoactive bowel sounds. No palpable organomegaly. MUSCULOSKELETAL: No joint swelling or deformity. EXTREMITIES: No cyanosis, clubbing, or pedal edema. NEUROLOGICAL: Gross neurological examination did not reveal any focal deficits. Diffuse weakness SKIN: No rashes. Assessment: Status post spinal surgery with minimally invasive decompression and fusion of the L5-S1 History of asthma HIstory of Migraines History of degenerative joint disease GI prophylaxis DVT prophylaxis Full code Plan: Recommend to continue with current medications and management per orthopedic s ervices. Patient reports to passing gas but no bowel movement as of yet. Tolerating diet and is currently sitting up in the chair at this time. Patient continues with some lower back discomfort and occasional spasms , although feels is improved today. recommend to continue to increase activity as tolerated . Patient has incentive spirometer at the bedside and encourage the patient to continue using at least 10 times every hour while awake even in the outpatient setting. Patient is feeling better and is being discharged today. Encouraged the patient also follow-up with primary care provider on discharge. We will continue to follow during hospitalization. Thank you for this consultation. The impression and plan of care has been dictated by Laxmi Paula, nurse practitioner as directed. MD Dylan I have performed a history and examination and MDM of this patient, discussed the same with the dictator, and agree with the dictator's assessment and plan as written ,documented as a scribe. Based on total visit time, I have performed more than 50% of the visit. Any additional findings or plans will be noted. Objective - Vital Signs Vital signs: Vital Signs Temp 98.1 F 04/05/22 07:01 Pulse 81 04/05/22 07:01 Resp 16 04/05/22 07:01 BP 104/68 04/05/22 07:01 Pulse Ox 95 04/05/22 07:01 Intake & Output 04/04/22 04/05/22 04/05/22 18:59 06:59 18:59 Intake Total 592 Balance 592 Intake: Oral 592 Other: Voiding Method Toilet Toilet # Voids 1 2 - Labs CBC & Chem 7: 04/04/22 06:57 04/04/22 06:57 Labs: Abnormal Lab Results - Last 24 Hours (Table) 04/04/22 04/04/22 Range/Units 06:57 06:57 RBC 3.77 L (4.10-5.20) X 10*6/uL Hgb 11.8 L (12.0-15.0) g/dL Hct 35.9 L (37.2-46.3) % Lymphocytes # 0.58 L (0.90-5.00) X 10*3/uL Eosinophils # 0 L (0.04-0.35) X 10*3/uL Sodium 131 L (135-145) mmol/L BUN 5.4 L (9.0-27.0) mg/dL BUN/Creatinine Ratio 9.00 L (12.00-20.00) Ratio Glucose 123 H (70-110) mg/dL Calcium 8.4 L (8.7-10.3) mg/dL
== END 2022-04-05 11:20 | disposition home or self-care (01) ==
LOC: OR 10:53 → 4SSUR 14:05 → OR 04-04 03:47 → 4SSUR 04-04 07:52
PROVIDERS: ADMIT Orthopaedic Surgery Orthopaedic Surgery of the Spine; ATTEND Orthopaedic Surgery Orthopaedic Surgery of the Spine
DX: G89.29 Other chronic pain (principal); M43.17 Spondylolisthesis, lumbosacral region; M51.17 Intervertebral disc disorders with radiculopathy, lumbosacral region; M48.07 Spinal stenosis, lumbosacral region; J45.909 Unspecified asthma, uncomplicated; G43.109 Migraine with aura, not intractable, without status migrainosus; Z97.3 Presence of spectacles and contact lenses; I73.00 Raynaud's syndrome without gangrene; Z98.891 History of uterine scar from previous surgery; Z98.890 Other specified postprocedural states; Z98.51 Tubal ligation status; Z79.1 Long term (current) use of non-steroidal anti-inflammatories (NSAID); Z79.891 Long term (current) use of opiate analgesic; Z79.899 Other long term (current) drug therapy
CPT/HCPCS: 97116; 97530; 97161; 86900; 86901; 80048; 85025; 86850; 72100; 22630; 20938; G0378 ×2; C1713 ×2; C1762; J2250; J2710; J0690 ×3; J2405; J3010; J1170 ×3; J0330; J2704; J2001

== ENCOUNTER → 2024-09-15 | Outpatient (CLI) | payer BC ==
--- NOTE | 2024-09-15 12:57 | XR ---
EXAMINATION TYPE: XR chest 2V DATE OF EXAM: 09/15/2024 12:43 PM CLINICAL INDICATION: Female, 43 years old with history of R05.3 CHRONIC COUGH; [facility] COMPARISON: None TECHNIQUE: XR chest 2V Frontal view of the chest. FINDINGS: Lungs/Pleura: There is no evidence of pleural effusion, focal consolidation, or pneumothorax. Pulmonary vascularity: Unremarkable. Heart/mediastinum: Cardiomediastinal silhouette is unremarkable. Musculoskeletal: No acute osseous pathology. IMPRESSION: No acute cardiopulmonary disease/process. [facility], , 09/15/2024 12:55 PM
== END | disposition home or self-care (01) ==
LOC: RADXRMAIN 12:30
PROVIDERS: ATTEND Family Medicine
DX: R05.3 Chronic cough (principal)
CPT/HCPCS: 71046